=== PATIENT | female | born 1960 | race Caucasian/White ===

== ENCOUNTER 2016-10-08 07:42 | Emergency (ER) | payer OTHER ==
--- NOTE | 2016-10-08 08:07 | UC ---
Dental HPI - HPI Summary HPI Summary: Pt states she saw her dentist yesterday and has an infected upper tooth on left side. was given amox 875mg BID, norco 5-325mg 1 q6h, and famciclovir 500mg TID. Currently c/o increased pain with nausea. was given a referal to another dentist for extraction but appointment not for a month. She is not sure if she need tooth extraction or root canal at this time and appt is oct 22 [ End ] - History of Current Complaint Chief Complaint: UCDentalProblem Stated Complaint: LEFT TOOTH COMPLAINT Time Seen by Provider: 10/08/16 08:06 Hx Obtained From: Patient Hx Last Menstrual Period: maybe a couple weeks ago ?: No Onset/Duration: Sudden Onset Related History: Previous Dental Care on Same Tooth - Allergies/Home Medications Allergies/Adverse Reactions: Allergies Allergy/AdvReac Type Severity Reaction Status Date / Time Epinephrine Allergy Tachycardia Verified 10/08/16 07:56 Latex Allergy Rash Verified 10/08/16 07:56 environmental allergy Allergy Congestion Uncoded 10/08/16 07:56 Home Medications: Home Medications Amoxicillin PO (*) [Amoxicillin 875 MG (*)] 875 mg PO BID 10/08/16 [History Confirmed 10/08/16] Famciclovir [Famvir] 1 tab PO TID 10/08/16 [History Confirmed 10/08/16] oxyCODONE/Acetamin 5/325 MG* [Percocet 5/325 TAB*] 1 tab PO Q6H PRN 10/08/16 [ History Confirmed 10/08/16] PMH/Surg Hx/FS Hx/Imm Hx Previously Healthy: Yes - Surgical History Surgical History: Yes Surgery Procedure, Year, and Place: c section at age 26,T&A - Family History Known Family History: Positive: None - Social History Occupation: Employed Full-time Lives: With Family Alcohol Use: Occasionally Substance Use Type: None, Marijuana Smoking Status (MU): Never Smoked Tobacco - Immunization History Most Recent Influenza Vaccination: Not the Season Review of Systems Constitutional: Negative Skin: Negative Eyes: Negative ENT: Dental Pain Respiratory: Negative Cardiovascular: Negative Gastrointestinal: Negative Genitourinary: Negative Motor: Negative Neurovascular: Negative Musculoskeletal: Negative Neurological: Negative Psychological: Negative All Other Systems Reviewed And Are Negative: Yes Physical Exam Triage Information Reviewed: Yes Appearance: Well-Appearing, Pain Distress - moderate Vital Signs: Initial Vital Signs Temp 98.8 F 10/08/16 07:50 Pulse 65 10/08/16 07:50 Resp 18 10/08/16 07:50 BP 139/78 10/08/16 07:50 Pulse Ox 98 10/08/16 07:50 Vital Signs Reviewed: Yes Eye Exam: Normal ENT Exam: Normal Dental Exam: Normal Dental: Positive: Percussion Tenderness @, Gross Decay/Caries @ Neck exam: Normal Neck: Positive: 1 Respiratory Exam: Normal Cardiovascular Exam: Normal Musculoskeletal Exam: Normal Neurological Exam: Normal Psychological Exam: Normal Skin Exam: Normal Re-Evaluation - Re-Evaluation First Eval Change: Improved Dental Complaint Course/Dx - Course Course Of Treatment: patient advised to f/u with dentist omayra for possible root canal. had nausea with pain meds -- advised to take pain med with meal and cut in half if needed. offered nausea med at this time as well. toradol helped greatly and she denies any cardiac, kidney or previous GI bleed - Differential Dx/Diagnosis Differential Diagnosis/Dx: Dental Abscess, Dental Caries, Odontogenic Pain, Peridontic Disease, Peritonsillar Abcess Provider Diagnoses: Dental caries Discharge - Discharge Plan Condition: Good Disposition: HOME Prescriptions: Ibuprofen TAB* [Motrin TAB* 600 MG] 600 mg PO Q12H PRN #14 tab PRN Reason: Pain Patient Education Materials: Toothache (ED) Referrals: Tricia Siegel [Primary Care Provider] - 3 Days (please seek care with a dentist as soon as possible ) Images Dental: 1 - tenderness
[2016-10-08] MEDS ORDERED: Ketorolac INJ* 30 MG/ML 1 ML VIAL IM ONE (08:17)
[2016-10-08 08:56] VITALS: BP 139/78
== END 2016-10-08 09:01 | disposition home or self-care (01) ==
LOC: UCCORT 07:42
DX: K02.9 Dental caries, unspecified (principal); R11.0 Nausea
CPT/HCPCS: 96372; 99212; G0463; J1885

== ENCOUNTER 2017-07-24 08:54 | Emergency (ER) | payer OTHER ==
[2017-07-24 09:12] VITALS: BP 129/68
--- NOTE | 2017-07-24 09:32 | UC ---
FLU HPI - HPI Summary HPI Summary: Pt c/o generalized malaise, cough, - History of Current Complaint Chief Complaint: UCRespiratory Stated Complaint: COUGH Time Seen by Provider: 07/24/17 09:09 Hx Obtained From: Patient Hx Last Menstrual Period: maybe a couple weeks ago ?: No Onset/Duration: Gradual Onset, Lasting Weeks - 1, Still Present, Worse Since - onset Severity Currently: Moderate Severity Initially: Mild Pain Intensity: 2 Associated Signs & Symptoms: Positive: Myalgia, Cough, Nasal Congestion Related Hx: Possible Flu/Infectious Exposure - Risk Factors Influenza Risk Factors: Negative - Allergy/Home Medications Allergies/Adverse Reactions: Allergies Allergy/AdvReac Type Severity Reaction Status Date / Time epinephrine Allergy Tachycardia Verified 07/24/17 09:05 latex Allergy Rash Verified 07/24/17 09:05 environmental allergy Allergy Congestion Uncoded 10/08/16 07:56 Home Medications: Home Medications Dm/PE/Acetaminophen/Chlorphenr [Cold Relief Head Congest Cplt] 1 each PO DAILY 07/24/17 [History Confirmed 07/24/17] PMH/Surg Hx/FS Hx/Imm Hx Previously Healthy: Yes - Surgical History Surgical History: Yes Surgery Procedure, Year, and Place: c section at age 26,T&A - Family History Known Family History: Positive: Cardiac Disease - Social History Lives: With Family Alcohol Use: Occasionally Substance Use Type: Marijuana Substance Use Comment - Amount & Last Used: 2 WEEKS AGO Smoking Status (MU): Never Smoked Tobacco Have You Smoked in the Last Year: Yes - marijuana - Immunization History Most Recent Influenza Vaccination: Not the Season Review of Systems Constitutional: Fatigue Skin: Negative Eyes: Negative ENT: Sore Throat Respiratory: Cough Cardiovascular: Negative Gastrointestinal: Negative Genitourinary: Negative Motor: Negative Neurovascular: Negative Musculoskeletal: Negative Neurological: Negative Psychological: Negative Is Patient Immunocompromised?: No All Other Systems Reviewed And Are Negative: Yes Physical Exam Triage Information Reviewed: Yes Appearance: Ill-Appearing Vital Signs: Initial Vital Signs Temp 98.4 F 07/24/17 09:06 Pulse 75 07/24/17 09:06 Resp 20 07/24/17 09:06 BP 129/68 07/24/17 09:06 Pulse Ox 99 07/24/17 09:06 Vital Signs Reviewed: Yes Eye Exam: Normal ENT Exam: Other ENT: Positive: Nasal congestion Dental Exam: Normal Neck exam: Normal Respiratory Exam: Normal Cardiovascular Exam: Normal Musculoskeletal Exam: Normal Neurological Exam: Normal Psychological Exam: Normal Skin Exam: Normal Diagnostics - Laboratory Diagnostic Studies Completed/Ordered: RApid flu: negative - Radiology No standard instances Radiology Interpretation Completed By: Radiologist - 2 views of the chest including dual energy PA views demonstrate no mediastinal shift. Heart is of normal size and configuration. Lung epstein appear clear. IMPRESSION: No active cardiopulmonary disease is noted. Flu Course/Dx - Differential Dx/Diagnosis Differential Diagnosis/HQI/PQRI: Influenza, Pneumonia, Upper Respiratory Infection Provider Diagnoses: Bronchitis Discharge - Sign-Out/Discharge Documenting (check all that apply): Discharge/Admit/Transfer - Discharge Plan Condition: Stable Disposition: HOME Prescriptions: Azithromycin TAB* [Zithromax TAB (Z-CRISTINA) 250 mg #6 tabs] 2 tab PO .TODAY, THEN 1 DAILY #1 cristina Benzonatate CAP* [Tessalon 100 MG CAP*] 100 mg PO Q8H PRN #30 cap PRN Reason: Cough Patient Education Materials: Acute Bronchitis (ED) Referrals: Tricia Siegel [Primary Care Provider] - If Needed Additional Instructions: Please follow with your PCP as soon as possible if your complaint of fatigue does not improve with treatment for your diagnosis of Bronchitis. - Billing Disposition and Condition Condition: STABLE Disposition: HOME
--- NOTE | 2017-07-24 09:54 | RAD ---
Indication: Cough, weakness. 2 views of the chest including dual energy PA views demonstrate no mediastinal shift. Heart is of normal size and configuration. Lung epstein appear clear. IMPRESSION: No active cardiopulmonary disease is noted.
== END 2017-07-24 10:07 | disposition home or self-care (01) ==
LOC: UCCORT 08:54
DX: J40 Bronchitis, not specified as acute or chronic (principal); Z88.8 Allergy status to other drugs, medicaments and biological substances; Z91.040 Latex allergy status
CPT/HCPCS: 71046; 87502; 99212; G0463